=== PATIENT | male | born 1965 | race Caucasian/White ===

== ENCOUNTER 2021-10-06 19:13 | Emergency (ER) | payer BC ==
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
[2021-10-06] MEDS ORDERED: Augmentin 875-125 Tablet PO ONE (19:47)
[2021-10-06] MEDS ORDERED: Augmentin 875-125 Tablet ONE (19:48)
[2021-10-06 20:04] VITALS: BP 172/116; PULSE 84
[2021-10-06 22:10] VITALS: O2SAT 97
== END 2021-10-06 20:04 | disposition home or self-care (01) ==
LOC: ED 19:13
DX: S80.871A Other superficial bite, right lower leg, initial encounter (principal); W54.0XXA Bitten by dog, initial encounter; Y92.007 Garden or yard of unspecified non-institutional (private) residence as the place of occurrence of the external cause
CPT/HCPCS: 99283; A9270-GY

== ENCOUNTER 2023-02-10 13:14 | Emergency (ER) | payer BC ==
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
[2023-02-10 13:51] VITALS: BP 162/101; PULSE 59; TEMP 99; O2SAT 98
[2023-02-10] MEDS ORDERED: XYLOCAINE 1% HCL 20 ML MDV ONE (15:01)
[2023-02-10] MEDS ORDERED: XYLOCAINE 1% HCL 20 ML MDV IJ ONE (15:02)
--- NOTE | 2023-02-12 11:41 | XRAY ---
CLINICAL HISTORY:Fall injury COMPARISON:None. TECHNIQUE:X-ray of the left knee in AP and lateral 2 views. FINDINGS: Evidence of previous ACL plasty. Surgical alexei were noted on the medial knee joint with underlying soft tissue swelling and shadow suggesting hematoma. Mild osteoarthritic changes of the knee joint. Patellar enthethopathy. Normal bone mineralization. No focal bony lesion or bone erosion. No sclerotic or destructive bone changes. No definite fracture or dislocation. No joint effusion in the suprapatellar bursa. Soft tissues appear unremarkable.?? IMPRESSION: Evidence of previous ACL plasty. Surgical alexei noted on medial knee joint with underlying soft tssieu swelling and shadow suggesting hematoma. Mild osteoarthritic changes of the knee joint. Patellar enthesopathy. No definite fracture or dislocation. DISCLAIMER:A subtle bone abnormality or fracture may not be readily apparent on x-rays, thus clinical correlation and further imaging including follow up CT, MRI, or follow up x-rays are advised as needed. Electronically Signed by: Vera Andrade MD. (02/10/2023 14:47:21 WINCH TRUCK OPERATOR)
== END 2023-02-10 16:23 | disposition home or self-care (01) ==
LOC: ED 13:14
DX: S81.012A Laceration without foreign body, left knee, initial encounter (principal); V86.56XA Driver of dirt bike or motor/cross bike injured in nontraffic accident, initial encounter; I10 Essential (primary) hypertension; Z79.899 Other long term (current) drug therapy
CPT/HCPCS: 12002; 73560; 96372; 99283